=== PATIENT | female | born 1955 | race Caucasian/White ===

== ENCOUNTER → 2017-08-29 | Outpatient (CLI) | payer BC ==
[2014-11-18 08:30] VITALS: BP 162/73
[~2017-08-29] MED LIST: ASCO10002 PO; ASPI325T8 PO; ATOR40TA PO; CARV12.5 PO; CHOL100014 PO; HYDR-2869 PO; LOSA1TAB22 PO; OMEG1CAP6 PO; VITA100075 PO
--- NOTE | 2017-08-29 09:37 | RAD ---
Exam performed: 3 views bilateral hands. History: Bilateral hand swelling, pain, difficulty forming accredited. Date of service: 08/29/17 comparison: None available 3 views bilateral hands findings: There are degenerative changes involving the first metacarpal joint with periarticular sclerosis predominantly in the left hand. The remainder alignment of both hands is preserved. There is no acute fracture or dislocation. Soft tissue swelling is seen bilaterally. No foreign body. Impression: Degenerative arthrosis involving bilateral first carpometacarpal joints, greater on the left.
== END | disposition home or self-care (01) ==
LOC: DXRADRC 08:54
PROVIDERS: ATTEND Physician Assistant Medical
DX: M18.9 Osteoarthritis of first carpometacarpal joint, unspecified (principal)
CPT/HCPCS: 73130

== ENCOUNTER → 2017-11-11 | Outpatient (CLI) | payer BC ==
[2014-11-18 08:30] VITALS: BP 162/73
--- NOTE | 2017-11-11 07:44 | RAD ---
Indication: Right heel pain. Time of exam 0735 hours. 2 views of the right calcaneus demonstrates a large plantar calcaneal spur. There is a posterior calcaneal spur present as well. No fracture or stress reaction is seen. Impression: Calcaneal spurs. No acute bony abnormality is detected.
== END | disposition home or self-care (01) ==
LOC: PMG 07:15
PROVIDERS: ATTEND Physician Assistant Medical
DX: M77.31 Calcaneal spur, right foot (principal)
CPT/HCPCS: 73650